=== PATIENT | male | born 2000 | race Caucasian/White ===

== ENCOUNTER 2018-09-10 15:52 | Emergency (ER) | payer OTHER ==
[2018-09-10 16:06] VITALS: BMI 18.6
[2018-09-10 16:11] VITALS: O2SAT 100
[2018-09-10 16:17] VITALS: TEMP 98.9
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
[2018-09-10 18:23] VITALS: BP 130/75; PULSE 105; RESP 14
== END 2018-09-10 17:50 | disposition left against medical advice (07) ==
LOC: ED 15:52
DX: S09.93XA Unspecified injury of face, initial encounter (principal); V49.49XA Driver injured in collision with other motor vehicles in traffic accident, initial encounter; W22.10XA Striking against or struck by unspecified automobile airbag, initial encounter; Y92.410 Unspecified street and highway as the place of occurrence of the external cause